=== PATIENT | female | born 1990 | race Caucasian/White ===

== ENCOUNTER 2020-09-22 06:43 | Emergency (ER) | payer BC ==
[2020-09-22] MEDS ORDERED: BABY ASPIRIN 81 MG CHEW PO ONE (07:39)
[2020-09-22 07:58] LABS: Absolute Neutrophil Ct (ANC) 4.17 (1.4-6.9); BASOPHIL % 0.3 % (0.0-0.4); Basophil (Absolute #) 0.02 (0-0.4); Eosinophil % 1.9 % (0.00-5.0); Eosinophil (Absolute #) 0.14 (0-0.5); Hematocrit 42.5 % (35-47); Hemoglobin 13.9 gm/dl (12.0-16.0); Lymphocyte (Absolute #) 2.58 (1.0-4.6); Lymphocytes % 34.4 % (24.0-44.0); Mean Cell Volume 92.4 fl (78-100); Mean Corpuscular Hemoglobin 30.2 pg (26-32); Mean Corpuscular Hgb Concent. 32.7 g/dl (32-36); Mean Platelet Volume 11.2 fl (7.5-11.0); Monocyte (Absolute #) 0.58 (0.0-1.3); Monocytes % 7.7 % (0.0-12.0); Neutrophil % 55.7 % (36.0-66.0); Platelet Count 321 K/mm3 (150-450); White Blood Count 7.5 K/mm3 (4.0-10.5)
[2020-09-22 08:00] LABS: ALBUMIN 4.2 g/dL (3.5-5.0); ALKALINE PHOSPHATASE 78 U/L (38-126); ANION GAP 12.8 MEQ/L (5-15); BLOOD UREA NITROGEN 10 mg/dL (7-17); CHLORIDE 103 mmol/L (98-107); Calcium 9.5 mg/dL (8.4-10.2); Carbon Dioxide 27 mmol/L (22-30); Creatinine 1 0.82 mg/dL (0.52-1.04); EST GLOMERULAR FILTRATION RATE > 60.0 ML/MIN; Glucose 111 mg/dL (74-106); Potassium 3.9 mmol/L (3.5-5.1); SGOT/AST 28 U/L (14-36); SGPT/ALT 35 U/L (0-35); SODIUM 139 mmol/L (137-145); Total Protein 7.2 g/dL (6.3-8.2)
[2020-09-22 08:12] LABS: Amphetamine,Urine NEGATIVE (NEGATIVE); Barbiturate,Urine NEGATIVE (NEGATIVE); Benzodiazepine,Urine NEGATIVE (NEGATIVE); Cocaine,Urine NEGATIVE (NEGATIVE); Methadone,Urine NEGATIVE (NEGATIVE); Opiate,Urine NEGATIVE (NEGATIVE); PCP,Urine NEGATIVE (NEGATIVE); THC,Urine POSITIVE (NEGATIVE)
[2020-09-22 08:17] LABS: NT PRO BNP 99.5 pg/mL (0-450)
--- NOTE | 2020-09-22 08:18 | XRAY ---
Indication: Chest pain. Comparison: None PA/lateral chest does not completely include the posterior gutter. Lungs inflated and clear with a few incidental tiny calcified granulomas. Heart and mediastinal structures within normal limits. Bony thorax intact with incidental mild pectus excavatum deformity. Impression: Nonacute limited chest with chronic features.
--- NOTE | 2020-09-22 08:31 | ERPHSYRPT ---
- History of Present Illness Time Seen by Provider: 09/22/20 07:39 Historian: patient Exam Limitations: no limitations Patient Subjective Stated Complaint: pt states "I feel like I had a panic attack." Triage Nursing Assessment: pt ambulated into the er; pt is axo x4; c/o anxiety; 3/10 pain to rt chest; pt states that pain in rt side chest is tightness feeling; pt states that she had feeling of a "panic attack or mini heart attack"; pt states that she has had episodes like this before; pt states that she has not been to doctor in long time; pt states that she was at a constitution party last night and smoke weed; pt "I started to pace last night"; pt states that she felt dizzy; pt states that she had a fast heart rate last night; pt states pt is under a lot of stress due to finances; pt is hypertensive Physician History: 30 years old female presented in the ER with chief complaint of anxiety-like symptoms. Patient reports she is feeling chest pain off and on since yesterday evening, dull aching to sharp substernally and more on the right upper chest with palpitations and some shortness of breath. Patient reports feeling dizzy and lightheaded as well and seems as if everything was closing on her. She was breathing really fast with feeling of as if she was going to pass out. Later on she started to have some nausea without vomiting. She went to sleep and woke up this morning with similar symptoms. Patient does admit to smoking marijuana but no other drugs. Reports having similar symptoms in the past. No fever chills or cough reported. Denies any sick contact. Timing/Duration: yesterday, constant, sudden, improved Activities at Onset: rest Quality: dullness, sharpness Location: substernal Chest Pain Radiation: no radiation Severity of Pain-Max: moderate Severity of Pain-Current: mild Modifying Factors: Improves With: nothing Associated Symptoms: palpitations, shortness of breath, No cough, No hurts to breathe Prior Chest Pain/Cardiac Workup: no prior cardiac workup Nitro Today/Relief: no nitro taken today Aspirin Treatment Today: no aspirin today Allergies/Adverse Reactions: No Known Drug Allergies Allergy (Unverified 09/22/20 06:51) Home Medications: No Reportable Medications [No Reported Medications] 09/22/20 [History] Hx Tetanus, Diphtheria Vaccination/Date Given: Yes Hx Influenza Vaccination/Date Given: No Hx Pneumococcal Vaccination/Date Given: No Travel Risk - International Travel Have you traveled outside of the country in past 3 weeks: No - Coronavirus Screening Are you exhibiting any of the following symptoms?: No Close contact with a COVID-19 positive Pt in past 14-21 Days: No - Vaccine Status Have you recieved a Covid-19 vaccination: No - Review of Systems Constitutional: No Symptoms Eyes: No Symptoms Ears, Nose, & Throat: No Symptoms Respiratory: Dyspnea Cardiac: Chest Pain Abdominal/Gastrointestinal: Nausea Genitourinary Symptoms: No Symptoms Musculoskeletal: No Symptoms Skin: No Symptoms Neurological: Dizziness Psychological: Drug Abuse, Anxiety Endocrine: No Symptoms Hematologic/Lymphatic: No Symptoms (Yeah) Immunological/Allergic: No Symptoms - Past Medical History Pertinent Past Medical History: No - Past Surgical History Past Surgical History: Yes Other Surgical History: dental - Social History Smoking Status: Former smoker Exposure to second hand smoke: Yes Drug Use: marijuana Patient Lives Alone: No - Female History Hx Now: (unkn) - Nursing Vital Signs Nursing Vital Signs: Initial Vital Signs Temperature 98.6 F 09/22/20 06:53 Pulse Rate 91 H 09/22/20 06:53 Respiratory Rate 16 09/22/20 06:53 Blood Pressure 154/120 09/22/20 06:53 O2 Sat by Pulse Oximetry 99 09/22/20 06:53 Pain Scale Pain Intensity 3 - Physical Exam General Appearance: no apparent distress, alert, anxiety Eye Exam: PERRL/EOMI, eyes nml inspection Ears, Nose, Throat Exam: normal ENT inspection, pharynx normal Neck Exam: normal inspection, supple, full range of motion Respiratory Exam: normal breath sounds, lungs clear Cardiovascular Exam: regular rate/rhythm, normal heart sounds Gastrointestinal/Abdomen Exam: soft, normal bowel sounds, No tenderness Back Exam: normal inspection, normal range of motion Extremity Exam: normal inspection, normal range of motion Neurologic Exam: alert, oriented x 3, cooperative Skin Exam: normal color SpO2 Interpretation: normal SpO2: 98 O2 Delivery: Room Air - Course EKG Interpreted by Me: RATE (72), Sinus Rhythm, NORMAL AXIS, NORMAL INTERVALS, Q -wave (Anteroseptal/inferior), Non-specific ST Changes Ordered Tests: Active Orders 24 hr Category Date Time Status Factory Assembler STAT Care 09/22/20 07:39 Completed EKG-ER Only STAT Care 09/22/20 07:39 Completed IV Insertion STAT Care 09/22/20 07:39 Completed CHEST 2 VIEWS (PA AND LAT) Stat Exams 09/22/20 07:39 Completed CBC W DIFF Stat Lab 09/22/20 07:19 Completed CMP Stat Lab 09/22/20 07:19 Completed D-DIMER QUANTITATIVE Stat Lab 09/22/20 07:19 Completed HCG,QUALITATIVE URINE Stat Lab 09/22/20 07:45 Completed NT PRO BNP Stat Lab 09/22/20 07:19 Completed TROPONIN Q3H Lab 09/22/20 07:19 Completed Urine Triage Profile Stat Lab 09/22/20 07:45 Completed Medication Summary Discontinued Medications Generic Name Dose Route Start Last Admin Trade Name Freq PRN Reason Stop Dose Admin Aspirin 324 mg 09/22/20 07:39 09/22/20 07:54 Baby Aspirin 81 Mg Chew PO 09/22/20 07:40 324 mg STAT ONE Administration Lab/Rad Data: Laboratory Result Diagrams 09/22/20 07:19 09/22/20 07:19 Laboratory Results 09/22/20 09/22/20 09/22/20 Range/Units 07:45 07:45 07:19 WBC (4.0-10.5) K/mm3 RBC (4.1-5.4) M/mm3 Hgb (12.0-16.0) gm/dl Hct (35-47) % MCV (78-100) fl MCH (26-32) pg MCHC (32-36) g/dl RDW (11.5-14.0) % Plt Count (150-450) K/mm3 MPV (7.5-11.0) fl Gran % (36.0-66.0) % Eos # (Auto) (0-0.5) Absolute Lymphs (auto) (1.0-4.6) Absolute Monos (auto) (0.0-1.3) Lymphocytes % (24.0-44.0) % Monocytes % (0.0-12.0) % Eosinophils % (0.00-5.0) % Basophils % (0.0-0.4) % Absolute Granulocytes (1.4-6.9) Basophils # (0-0.4) D-Dimer (215-500) ng/mL Sodium (137-145) mmol/L Potassium (3.5-5.1) mmol/L Chloride (98-107) mmol/L Carbon Dioxide (22-30) mmol/L Anion Gap (5-15) MEQ/L BUN (7-17) mg/dL Creatinine (0.52-1.04) mg/dL Estimated GFR ML/MIN Glucose (74-106) mg/dL Calcium (8.4-10.2) mg/dL Total Bilirubin (0.2-1.3) mg/dL AST (14-36) U/L ALT (0-35) U/L Alkaline Phosphatase (38-126) U/L Troponin I < 0.012 (0.000-0.034) ng/mL NT-Pro-B Natriuret Pep (0-450) pg/mL Serum Total Protein (6.3-8.2) g/dL Albumin (3.5-5.0) g/dL Urine HCG, Qual NEGATIVE (Negative) Urine Opiates Level NEGATIVE (NEGATIVE) Ur Methadone NEGATIVE (NEGATIVE) Urine Barbiturates NEGATIVE (NEGATIVE) Ur Phencyclidine (PCP) NEGATIVE (NEGATIVE) Urine Amphetamine NEGATIVE (NEGATIVE) U Benzodiazepine Level NEGATIVE (NEGATIVE) Urine Cocaine NEGATIVE (NEGATIVE) Urine Marijuana (THC) POSITIVE (NEGATIVE) 09/22/20 09/22/20 09/22/20 Range/Units 07:19 07:19 07:19 WBC 7.5 (4.0-10.5) K/mm3 RBC 4.60 (4.1-5.4) M/mm3 Hgb 13.9 (12.0-16.0) gm/dl Hct 42.5 (35-47) % MCV 92.4 (78-100) fl MCH 30.2 (26-32) pg MCHC 32.7 (32-36) g/dl RDW 12.0 (11.5-14.0) % Plt Count 321 (150-450) K/mm3 MPV 11.2 H (7.5-11.0) fl Gran % 55.7 (36.0-66.0) % Eos # (Auto) 0.14 (0-0.5) Absolute Lymphs (auto) 2.58 (1.0-4.6) Absolute Monos (auto) 0.58 (0.0-1.3) Lymphocytes % 34.4 (24.0-44.0) % Monocytes % 7.7 (0.0-12.0) % Eosinophils % 1.9 (0.00-5.0) % Basophils % 0.3 (0.0-0.4) % Absolute Granulocytes 4.17 (1.4-6.9) Basophils # 0.02 (0-0.4) D-Dimer 487 (215-500) ng/mL Sodium 139 (137-145) mmol/L Potassium 3.9 (3.5-5.1) mmol/L Chloride 103 (98-107) mmol/L Carbon Dioxide 27 (22-30) mmol/L Anion Gap 12.8 (5-15) MEQ/L BUN 10 (7-17) mg/dL Creatinine 0.82 (0.52-1.04) mg/dL Estimated GFR > 60.0 ML/MIN Glucose 111 H (74-106) mg/dL Calcium 9.5 (8.4-10.2) mg/dL Total Bilirubin 0.20 (0.2-1.3) mg/dL AST 28 (14-36) U/L ALT 35 (0-35) U/L Alkaline Phosphatase 78 (38-126) U/L Troponin I (0.000-0.034) ng/mL NT-Pro-B Natriuret Pep 99.5 (0-450) pg/mL Serum Total Protein 7.2 (6.3-8.2) g/dL Albumin 4.2 (3.5-5.0) g/dL Urine HCG, Qual (Negative) Urine Opiates Level (NEGATIVE) Ur Methadone (NEGATIVE) Urine Barbiturates (NEGATIVE) Ur Phencyclidine (PCP) (NEGATIVE) Urine Amphetamine (NEGATIVE) U Benzodiazepine Level (NEGATIVE) Urine Cocaine (NEGATIVE) Urine Marijuana (THC) (NEGATIVE) - Progress Progress: improved Air Movement: good Progress Note: 09/22/20 09:11 30 years old is evaluated for anxiety/panic attacks/chest pain. Her chest pain is much improved on my evaluation and does not want any pain medicine. She is given aspirin. EKG did not show any acute ST elevation and has negative troponins and D-dimers. Grossly unremarkable chemistries. Chest x-ray negative for any acute cardiopulmonary findings. With her symptoms going on since yesterday one negative troponin is enough to rule out. She does not have many cardiac risk factors. Her symptoms are more secondary to anxiety by smoking marijuana. She is counseled about smoking. Do not think she needs any further work-up in the ER, recommended outpatient follow-up. Discussed signs symptoms of worsening needing return to ER he seems understanding. Blood Culture(s) Obtained: No Antibiotics given: No Counseled pt/family regarding: lab results, diagnosis, need for follow-up, rad results, smoking cessation - Departure Departure Disposition: Home Clinical Impression: Atypical chest pain, Anxiety Condition: Stable Critical Care Time: No Referrals: DOCTOR,NO FAMILY [Primary Care Provider] - JESSICA VIGIL DO [ACTIVE STAFF] - Follow Up with PCP/3 days FELIBERTO BUENO [ACTIVE STAFF] - (Call for appointment in 2 to 3 days) Instructions: Anxiety, Adult (DC), Chest Pain (DC) Additional Instructions: Take Tylenol as needed for chest pain. Do not smoke. Follow-up with primary care and cardiology for reevaluation. Return to ER for worsening chest pain palpitations or shortness of breath.
[2020-09-22 09:15] VITALS: BP 112/81; PULSE 66
[2020-09-22 11:02] VITALS: O2SAT 98
== END 2020-09-22 09:24 | disposition home or self-care (01) ==
LOC: ED 06:43
DX: R07.89 Other chest pain (principal); F41.9 Anxiety disorder, unspecified
CPT/HCPCS: 36000; 36415; 71046; 80053; 80307; 83880; 84484; 84703; 85025; 85379; 93005; 93041; 99284; A9270-GY